=== PATIENT | male | born 1950 | race Two or more races ===

== ENCOUNTER 2019-06-25 16:39 | Emergency (ER) | payer MEDICARE, OTHER ==
[~2019-06-25] VITALS: Ht 160 cm; Wt 71.2 kg
[~2019-06-25 16:39] MED LIST: CHLO25TA22 PO; GLIP10TA9 PO; HYDR-4798 PO; METF-370 PO; METO-158 PO; NIFE90TA30 PO; OMEP20TA PO; TAMS0.4C36 PO
[2019-06-25 16:50] VITALS: BP 160/67
[2019-06-25 18:00] LABS: Basophils # (auto) 0.1 uL; Monocytes # (auto) 0.5 uL
[2019-06-25 18:03] LABS: Basophils % (auto) 0.7 % (0.0-2.0); Eosinophils # (auto) 0.3 uL; Hematocrit 36.3 % (41.0-53.0); Hemoglobin 12.4 g/dL (13.5-17.5); Lymphocytes # (auto) 1.6 uL; Lymphocytes % (auto) 18.6 % (10.0-50.0); Mean Corpuscular Hemoglobin 28.5 pg (28.0-32.0); Mean Corpuscular Hgb Conc. 34.2 g/dL (32.0-36.0); Mean Corpuscular Volume 83.5 fL (80.0-100.0); Monocytes % (auto) 5.9 % (0.0-12.0); Neutrophils # (auto) 6.1 uL; Neutrophils % (auto) 70.8 % (37.0-80.0); Nucleated Red Blood Cells % 0.1 %; Platelet Count (auto) 467 10^3/uL (140-450); Red Blood Cells 4.35 10^6/uL (4.5-5.90); Red Cell Distribution Width 18.3 % (11.8-14.3); White Blood Cell 8.6 10^3/uL (4.4-10.8)
[2019-06-25 18:23] LABS: Albumin 2.8 g/dL (3.4-5.0); Calcium 8.4 mg/dL (8.5-10.1); Chloride 107 mmol/L (98-107); Potassium 5.1 mmol/L (3.5-5.1); Sodium 134 mmol/L (136-145)
[2019-06-25 18:26] LABS: Alanine Aminotransferase 14 U/L (16-61); Anion Gap 7 (5-15); Aspartate Aminotransferase 10 U/L (15-37); BUN/Creatinine Ratio 16.6; Blood Urea Nitrogen 26 mg/dL (7-18); Carbon Dioxide 20 mmol/L (21-32); GFR African American 56 mL/min; GFR Non-African American 47 mL/min; Glucose 304 mg/dL (74-106)
[2019-06-25 18:31] LABS: Alkaline Phosphatase 84 U/L (45-117); Bilirubin, Total 0.2 mg/dL (0.2-1.0); Total Protein 7.6 g/dL (6.4-8.2)
== END 2019-06-25 21:33 | disposition left against medical advice (07) ==
LOC: ER 16:39
DX: R06.02 Shortness of breath (principal); Z53.21 Procedure and treatment not carried out due to patient leaving prior to being seen by health care provider
CPT/HCPCS: 36415; 71046; 80053; 84484; 85025; 93005

== ENCOUNTER 2019-06-27 12:19 | Emergency (ER) | payer OTHER ==
[~2019-06-27] VITALS: Ht 160 cm; Wt 71.2 kg
[2019-06-27 12:30] VITALS: BP 138/53
[2019-06-27 13:25] LABS: Hemoglobin 11.9 g/dL (13.5-17.5)
[2019-06-27 13:26] LABS: Hematocrit 36.3 % (41.0-53.0); Mean Corpuscular Hemoglobin 27.6 pg (28.0-32.0); Mean Corpuscular Hgb Conc. 32.9 g/dL (32.0-36.0); Mean Corpuscular Volume 84.1 fL (80.0-100.0); Platelet Count (auto) 533 10^3/uL (140-450); Red Blood Cells 4.32 10^6/uL (4.5-5.90); Red Cell Distribution Width 17.5 % (11.8-14.3); White Blood Cell 12.6 10^3/uL (4.4-10.8)
[2019-06-27 13:29] LABS: Band Neutrophils % (manual) 0; Basophils % (manual) 0 (0.0-2.0); Blast Cells 0; Myelocytes % 0; Promyelocytes % 0
[2019-06-27 13:40] LABS: INR 0.99 (0.9-1.15); Partial Thromboplastin Time 31.6 sec (23.64-32.05)
[2019-06-27 13:42] LABS: Chloride 105 mmol/L (98-107); Potassium 5.1 mmol/L (3.5-5.1); Sodium 133 mmol/L (136-145)
[2019-06-27 13:47] LABS: Alanine Aminotransferase 19 U/L (16-61); Albumin 3.1 g/dL (3.4-5.0); Anion Gap 8 (5-15); Aspartate Aminotransferase 14 U/L (15-37); BUN/Creatinine Ratio 18.3; Blood Urea Nitrogen 35 mg/dL (7-18); Calcium 8.3 mg/dL (8.5-10.1); Carbon Dioxide 20 mmol/L (21-32); GFR African American 45 mL/min; GFR Non-African American 37 mL/min; Glucose 238 mg/dL (74-106)
[2019-06-27 13:48] LABS: Eosinophils % (manual) 3 (0-7); Lymphocytes % (manual) 28 (10.0-50.0); Metamyelocytes % 1; Monocytes % (manual) 3 (0-12); Reactive Lymphocytes 1
[2019-06-27 13:52] LABS: Alkaline Phosphatase 84 U/L (45-117); Bilirubin, Total 0.2 mg/dL (0.2-1.0); Total Protein 7.7 g/dL (6.4-8.2)
[2019-06-27] MEDS ORDERED: ASPirin 81 mg TAB PO ONE (17:30)
== END 2019-06-27 19:57 | disposition home or self-care (01) ==
LOC: ER 12:25
DX: R07.89 Other chest pain (principal); R50.9 Fever, unspecified; R06.02 Shortness of breath; M79.602 Pain in left arm
CPT/HCPCS: 36415; 71046; 80053; 84484; 85007; 85027; 85610; 85730; 93005

== ENCOUNTER 2020-05-18 05:17 | Emergency (ER) | payer OTHER ==
[~2020-05-18] VITALS: Ht 160 cm; Wt 71.2 kg
[~2020-05-18 05:17] MED LIST changes: -NIFE90TA30 PO; +NIFE90TA49 PO
[2020-05-18 05:33] VITALS: BP 134/58
== END 2020-05-18 12:11 | disposition left against medical advice (07) ==
LOC: ER 05:17
DX: I13.0 Hypertensive heart and chronic kidney disease with heart failure and stage 1 through stage 4 chronic kidney disease, or unspecified chronic kidney disease (principal); E11.22 Type 2 diabetes mellitus with diabetic chronic kidney disease; N18.30 Chronic kidney disease, stage 3 unspecified; I50.89 Other heart failure; R07.89 Other chest pain; E78.5 Hyperlipidemia, unspecified; I25.2 Old myocardial infarction
CPT/HCPCS: 71045; 93005

== ENCOUNTER 2021-10-08 09:21 | Inpatient (IN) | payer OTHER ==
[~2021-10-08] VITALS: Ht 160 cm; Wt 81.3 kg
[~2021-10-08 09:21] MED LIST changes: +CHLO25TA2 PO; -CHLO25TA22 PO
[2021-10-08 10:22] LABS: Urine Bacteria MOD /hpf (None Seen); Urine Blood 3+ /uL (Negative); Urine Mucus FEW (None Seen); Urine Specific Gravity 1.013 (1.001-1.035); Urine WBC 69 /hpf (0 - 3)
[2021-10-08] MEDS ORDERED: MORPHINE SULFATE 4 MG/ML SYR/VIAL IV ONE (11:00)
[2021-10-08] MEDS ORDERED: ONDANSETRON HCL 4 MG/2 ML VIAL IV ONE (11:00)
[2021-10-08] MEDS ORDERED: cloNIDine HCL 0.1 MG TAB PO ONE (11:00)
[2021-10-08 11:29] LABS: Hemoglobin 11.1 g/dL (13.5-17.5)
[2021-10-08 11:31] LABS: Hematocrit 33.3 % (41.0-53.0); Mean Corpuscular Hemoglobin 27.5 pg (28.0-32.0); Mean Corpuscular Hgb Conc. 33.3 g/dL (32.0-36.0); Mean Corpuscular Volume 82.4 fL (80.0-100.0); Red Blood Cells 4.05 10^6/uL (4.5-5.90); Red Cell Distribution Width 13.7 % (11.8-14.3); White Blood Cell 18.5 10^3/uL (4.4-10.8)
[2021-10-08 11:38] LABS: Basophils % (manual) 0 (0.0-2.0); Blast Cells 0; Eosinophils % (manual) 0 (0-7); Metamyelocytes % 0; Myelocytes % 0; Promyelocytes % 0; Reactive Lymphocytes 0
[2021-10-08 11:44] LABS: Calcium 8.2 mg/dL (8.5-10.1); Potassium 4.7 mmol/L (3.5-5.1)
[2021-10-08 11:47] LABS: BUN/Creatinine Ratio 25.8; Bilirubin, Total 0.2 mg/dL (0.2-1.0); Total Protein 7.4 g/dL (6.4-8.2)
[2021-10-08] MEDS ORDERED: cefTRIAXone 1GM/50ML D5W 50 ML IV ONE (12:00)
[2021-10-08] MEDS ORDERED: DEXTROSE (50%) 50ML SYRG IV PRN (13:00)
[2021-10-08] MEDS ORDERED: NITROGLYCERIN 0.4 MG SL TAB SL PRN (13:00)
[2021-10-08 14:04] LABS: Band Neutrophils % (manual) 5; Lymphocytes % (manual) 6 (10.0-50.0); Monocytes % (manual) 4 (0-12)
[2021-10-08] MEDS ORDERED: LORazepam 0.5 MG TAB PO PRN (14:30)
[2021-10-08] MEDS ORDERED: HYDROcodone-ACET 5/325MG TAB PO ONE (14:30)
[2021-10-08] MEDS ORDERED: IPRATROPIUM BROM 0.5 MG/2.5ML INH SOL NEB ONE (14:30)
[2021-10-08] MEDS ORDERED: ONDANSETRON HCL 4 MG/2 ML VIAL IV PRN (14:30)
[2021-10-08] MEDS ORDERED: LACTULOSE 20Gm/30ML SOLN PO PRN (14:30)
[2021-10-08] MEDS: SODIUM CHLORIDE 0.9% 1,000 ML IV SCH (14:30)
[2021-10-08] MEDS ORDERED: hydrALAZINE HCL 20 MG/ML VL IV PRN (14:30)
[2021-10-08] MEDS ORDERED: FAMOTIDINE (10MG/ML) 2ML VL IV ONE (14:30)
[2021-10-08 14:58] LABS: Magnesium 1.5 mg/dL (1.6-2.6); Phosphorus 3.5 mg/dL (2.5-4.90)
[2021-10-08 15:18] LABS: INR 1.06 (0.9-1.15); Partial Thromboplastin Time 31.5 sec (23.6-33.0)
[2021-10-08] MEDS: MORPHINE SULFATE INJECTION 2 MG/ML SYRG IV PRN ×2 (15:32→21:43)
[2021-10-08 16:10] VITALS: BP 114/42
[2021-10-08 17:00] VITALS: BP 117/38
[2021-10-08] MEDS: InsuLIN REG 1unit/0.01ml Soln (100units/ml) SC SCH ×2 (17:00→21:33)
[2021-10-08] MEDS: ACCU-CHEK COMFORT CURVE STRIP VI SCH ×2 (17:29→22:08)
[2021-10-08] MEDS ORDERED: FUROSEMIDE 40 MG/4 ML VIAL IV ONE (17:45)
[2021-10-08] MEDS ORDERED: InsuLIN REG 1unit/0.01ml Soln (100units/ml) SC ONE (17:45)
[2021-10-08] MEDS ORDERED: InsuLIN REG 1unit/0.01ml Soln (100units/ml) IV ONE (17:45)
[2021-10-08] MEDS ORDERED: IPRATROPIUM BROM 0.5 MG/2.5ML INH SOL NEB SCH (18:00)
[2021-10-08] MEDS: FUROSEMIDE 40 MG/4 ML VIAL IV SCH (18:28)
[2021-10-08] MEDS: MAGNESIUM SULFATE 1GM/100ML 100 ML IV SCH ×4 (18:28→23:05)
[2021-10-08] MEDS: DOCUSATE SOD 100 MG CAP PO PRN (20:26)
[2021-10-08] MEDS: POTASSIUM CHL 20 Meq TABLET PO SCH (20:26)
[2021-10-08] MEDS: ATORVASTATIN 20 MG TAB PO SCH (20:26)
[2021-10-08] MEDS: HYDROcodone-ACET 5/325MG TAB PO PRN (20:36)
[2021-10-08] MEDS: INSULIN LANTUS (GLARGINE) 1 /0.01ml (100units/ml) SC SCH (21:35)
[2021-10-09] MEDS: HYDROcodone-ACET 5/325MG TAB PO PRN ×2 (02:41→08:37)
[2021-10-09] MEDS: MORPHINE SULFATE INJECTION 2 MG/ML SYRG IV PRN ×4 (04:09→22:39)
[2021-10-09] MEDS: FUROSEMIDE 40 MG/4 ML VIAL IV SCH (05:48)
[2021-10-09 05:53] LABS: Alcohol, Urine < 3.0 mg/dL (0-10); Amphetamine Screen, Urine NEGATIVE (NEGATIVE); Barbiturate Scree,Urine NEGATIVE (NEGATIVE); Benzodiazephine Screen, Urine NEGATIVE (NEGATIVE); Cannabinoid Screen, Urine NEGATIVE (NEGATIVE); Cocaine Screen, Urine NEGATIVE (NEGATIVE); Opiate Scree,Urine POSITIVE (NEGATIVE); Phencyclidine Screen, Urine NEGATIVE (NEGATIVE); Protein, Urine 36.5 mg/dL (0.0-11.9)
[2021-10-09] MEDS: ACCU-CHEK COMFORT CURVE STRIP VI SCH ×4 (05:55→21:48)
[2021-10-09 06:00] LABS: Urine Bacteria FEW /hpf (None Seen); Urine Blood 3+ /uL (Negative); Urine Specific Gravity 1.008 (1.001-1.035); Urine WBC 7 /hpf (0 - 3); Urine WBC Clumps PRESENT /hpf (None Seen)
[2021-10-09] MEDS: InsuLIN REG 1unit/0.01ml Soln (100units/ml) SC SCH ×4 (06:07→22:00)
[2021-10-09] MEDS: INSULIN LANTUS (GLARGINE) 1 /0.01ml (100units/ml) SC SCH ×2 (06:07→22:00)
[2021-10-09] MEDS: SODIUM CHLORIDE 0.9% 1,000 ML IV SCH ×2 (06:07→21:48)
[2021-10-09 06:09] VITALS: BP 117/76
[2021-10-09 06:54] LABS: Hematocrit 33.8 % (41.0-53.0); Hemoglobin 11.7 g/dL (13.5-17.5); INR 1.02 (0.9-1.15); Mean Corpuscular Hemoglobin 28.4 pg (28.0-32.0); Mean Corpuscular Hgb Conc. 34.8 g/dL (32.0-36.0); Mean Corpuscular Volume 81.5 fL (80.0-100.0); Partial Thromboplastin Time 27.6 sec (23.6-33.0); Red Blood Cells 4.14 10^6/uL (4.5-5.90); Red Cell Distribution Width 13.8 % (11.8-14.3); White Blood Cell 23.9 10^3/uL (4.4-10.8)
[2021-10-09 07:05] LABS: Potassium 4.4 mmol/L (3.5-5.1)
[2021-10-09 07:14] LABS: Thyroid Stimulating Hormone 1.14 uIU/mL (0.358-3.74)
[2021-10-09 07:24] LABS: Basophils % (manual) 0 (0.0-2.0); Blast Cells 0; Metamyelocytes % 0; Promyelocytes % 0; Reactive Lymphocytes 0
[2021-10-09 07:26] LABS: Albumin 3.2 g/dL (3.4-5.0); BUN/Creatinine Ratio 27.5; Bilirubin, Total 0.2 mg/dL (0.2-1.0); CRP High Sensitivity 3.88 mg/dL (< 0.3); Calcium 8.9 mg/dL (8.5-10.1); Phosphorus 3.2 mg/dL (2.5-4.90); Total Protein 7.6 g/dL (6.4-8.2); Uric Acid 7.5 mg/dL (3.5-7.2)
[2021-10-09 07:30] VITALS: BP 117/76
[2021-10-09 08:07] LABS: Band Neutrophils % (manual) 2; Eosinophils % (manual) 1 (0-7); Lymphocytes % (manual) 13 (10.0-50.0); Monocytes % (manual) 6 (0-12); Myelocytes % 1
[2021-10-09] MEDS: cefTRIAXone 1GM/50ML D5W 50 ML IV SCH (08:37)
[2021-10-09] MEDS: FAMOTIDINE (10MG/ML) 2ML VL IV SCH (08:37)
[2021-10-09] MEDS: MAGNESIUM OXIDE 400 MG TAB PO SCH ×2 (08:38→21:47)
[2021-10-09] MEDS: POTASSIUM CHL 20 Meq TABLET PO SCH ×2 (08:38→21:48)
[2021-10-09] MEDS: FINASTERIDE 5 MG TAB PO SCH (08:38)
[2021-10-09] MEDS: NIFEdipine ER 30 MG TAB PO SCH (08:39)
[2021-10-09 08:48] VITALS: BP 116/52
[2021-10-09] MEDS ORDERED: METOPROLOL SUCCINATE XL 50 MG TAB PO SCH (10:00)
[2021-10-09 13:00] VITALS: BP 135/56
[2021-10-09] MEDS ORDERED: HYDROcodone-ACET 10/325MG TAB PO PRN (15:45)
[2021-10-09] MEDS: METOPROLOL SUCCINATE XL 50 MG TAB PO SCH (16:51)
[2021-10-09] MEDS: TAMSULOSIN HYDROCHLORIDE 0.4 MG CAP PO SCH (16:51)
[2021-10-09 17:28] VITALS: BP 118/65
[2021-10-09 21:30] VITALS: BP 120/57
[2021-10-09] MEDS: DOCUSATE SOD 100 MG CAP PO PRN (21:47)
[2021-10-09] MEDS: ATORVASTATIN 20 MG TAB PO SCH (21:47)
[2021-10-10 05:00] VITALS: BP 115/47
[2021-10-10 06:27] LABS: Red Cell Distribution Width 13.6 % (11.8-14.3)
[2021-10-10 06:31] LABS: Basophils # (auto) 0.1 10 ^3/uL (0-0.2); Basophils % (auto) 0.3 % (0.0-2.0); Eosinophils # (auto) 0.1 10 ^3/uL (0-0.8); Eosinophils % (auto) 0.4 % (0.0-7.0); Hematocrit 31.4 % (41.0-53.0); Hemoglobin 10.5 g/dL (13.5-17.5); Lymphocytes # (auto) 2.2 10 ^3/uL (0.4-5.4); Lymphocytes % (auto) 9.1 % (10.0-50.0); Mean Corpuscular Hemoglobin 27.4 pg (28.0-32.0); Mean Corpuscular Hgb Conc. 33.2 g/dL (32.0-36.0); Mean Corpuscular Volume 82.5 fL (80.0-100.0); Monocytes # (auto) 2.5 10 ^3/uL (0-1.3); Monocytes % (auto) 10.2 % (0.0-12.0); Neutrophils # (auto) 19.5 10 ^3/uL (1.6-8.6); Red Blood Cells 3.81 10^6/uL (4.5-5.90); White Blood Cell 24.4 10^3/uL (4.4-10.8)
[2021-10-10 06:33] LABS: Calcium 8.3 mg/dL (8.5-10.1); Potassium 4.3 mmol/L (3.5-5.1)
[2021-10-10 06:36] LABS: BUN/Creatinine Ratio 31.2
[2021-10-10] MEDS: InsuLIN REG 1unit/0.01ml Soln (100units/ml) SC SCH ×4 (06:56→22:49)
[2021-10-10] MEDS: ACCU-CHEK COMFORT CURVE STRIP VI SCH ×4 (07:00→22:00)
[2021-10-10] MEDS: INSULIN LANTUS (GLARGINE) 1 /0.01ml (100units/ml) SC SCH ×2 (07:00→22:49)
[2021-10-10] MEDS: MAGNESIUM OXIDE 400 MG TAB PO SCH ×2 (08:27→22:50)
[2021-10-10] MEDS: FAMOTIDINE (10MG/ML) 2ML VL IV SCH (08:28)
[2021-10-10] MEDS: FINASTERIDE 5 MG TAB PO SCH (08:28)
[2021-10-10] MEDS: cefTRIAXone 1GM/50ML D5W 50 ML IV SCH (08:29)
[2021-10-10 08:35] VITALS: BP 154/61
[2021-10-10] MEDS: POTASSIUM CHL 20 Meq TABLET PO SCH ×2 (08:44→22:49)
[2021-10-10] MEDS: NIFEdipine ER 30 MG TAB PO SCH (08:47)
[2021-10-10 12:05] VITALS: BP 137/65
[2021-10-10 12:20] VITALS: BP 115/66
[2021-10-10] MEDS ORDERED: MORPHINE SULFATE INJECTION 2 MG/ML SYRG IV PRN (13:45)
[2021-10-10] MEDS ORDERED: HYDROcodone-ACET 5/325MG TAB PO PRN ×2 (13:45→18:15)
[2021-10-10] MEDS: MORPHINE SULFATE INJECTION 2 MG/ML SYRG IV PRN (16:01)
[2021-10-10 16:25] VITALS: BP 134/62
[2021-10-10] MEDS: SODIUM CHLORIDE 0.9% 1,000 ML IV SCH ×2 (16:30→18:55)
[2021-10-10] MEDS: TAMSULOSIN HYDROCHLORIDE 0.4 MG CAP PO SCH (18:24)
[2021-10-10] MEDS: HYDROcodone-ACET 10/325MG TAB PO PRN ×2 (18:24→22:52)
[2021-10-10] MEDS: METOPROLOL SUCCINATE XL 50 MG TAB PO SCH (18:25)
[2021-10-10 22:00] VITALS: BP 124/39
[2021-10-10] MEDS: ATORVASTATIN 20 MG TAB PO SCH (22:49)
[2021-10-10] MEDS: MEROPENEM 1GM IVPB 100 ML IV SCH (23:34)
[2021-10-11] MEDS: HYDROcodone-ACET 10/325MG TAB PO PRN ×2 (04:32→09:20)
[2021-10-11 05:00] VITALS: BP 101/33
[2021-10-11 06:00] LABS: Basophils # (auto) 0.1 10 ^3/uL (0-0.2); Basophils % (auto) 0.3 % (0.0-2.0); Eosinophils # (auto) 0.2 10 ^3/uL (0-0.8); Eosinophils % (auto) 0.9 % (0.0-7.0); Monocytes # (auto) 1.6 10 ^3/uL (0-1.3); Nucleated Red Blood Cells % 0.1 %; Red Cell Distribution Width 14.1 % (11.8-14.3); White Blood Cell 23.5 10^3/uL (4.4-10.8)
[2021-10-11 06:02] LABS: Hematocrit 30.7 % (41.0-53.0); Hemoglobin 10.4 g/dL (13.5-17.5); Lymphocytes # (auto) 2.7 10 ^3/uL (0.4-5.4); Lymphocytes % (auto) 11.6 % (10.0-50.0); Mean Corpuscular Hemoglobin 27.9 pg (28.0-32.0); Monocytes % (auto) 6.9 % (0.0-12.0); Neutrophils # (auto) 18.9 10 ^3/uL (1.6-8.6); Neutrophils % (auto) 80.3 % (37.0-80.0); Red Blood Cells 3.74 10^6/uL (4.5-5.90)
[2021-10-11 06:20] LABS: Potassium 4.7 mmol/L (3.5-5.1)
[2021-10-11 06:28] LABS: BUN/Creatinine Ratio 31.6; Calcium 8.5 mg/dL (8.5-10.1); Magnesium 2.6 mg/dL (1.6-2.6)
[2021-10-11] MEDS: ACCU-CHEK COMFORT CURVE STRIP VI SCH ×4 (06:28→21:40)
[2021-10-11] MEDS: InsuLIN REG 1unit/0.01ml Soln (100units/ml) SC SCH ×4 (06:29→22:02)
[2021-10-11] MEDS: INSULIN LANTUS (GLARGINE) 1 /0.01ml (100units/ml) SC SCH ×2 (06:57→22:02)
[2021-10-11 08:56] VITALS: BP 119/61
[2021-10-11] MEDS: MEROPENEM 1GM IVPB 100 ML IV SCH ×2 (09:17→21:25)
[2021-10-11] MEDS: FAMOTIDINE (10MG/ML) 2ML VL IV SCH (09:17)
[2021-10-11] MEDS: NIFEdipine ER 30 MG TAB PO SCH (09:18)
[2021-10-11] MEDS: POTASSIUM CHL 20 Meq TABLET PO SCH ×2 (09:20→21:25)
[2021-10-11] MEDS: MAGNESIUM OXIDE 400 MG TAB PO SCH ×2 (09:21→21:26)
[2021-10-11] MEDS: FINASTERIDE 5 MG TAB PO SCH (09:22)
[2021-10-11 13:00] VITALS: BP 155/58
[2021-10-11] MEDS: MORPHINE SULFATE INJECTION 2 MG/ML SYRG IV PRN (13:08)
[2021-10-11 16:43] VITALS: BP 113/53
[2021-10-11] MEDS: METOPROLOL SUCCINATE XL 50 MG TAB PO SCH (17:00)
[2021-10-11] MEDS: TAMSULOSIN HYDROCHLORIDE 0.4 MG CAP PO SCH (18:00)
[2021-10-11] MEDS ORDERED: HYDROcodone-ACET 10/325MG TAB PO PRN (21:15)
[2021-10-11] MEDS: ATORVASTATIN 20 MG TAB PO SCH (21:25)
[2021-10-11] MEDS: MORPHINE SULFATE 4 MG/ML SYR/VIAL IV PRN (21:28)
[2021-10-11 22:00] VITALS: BP 129/49
[2021-10-12] MEDS: SODIUM CHLORIDE 0.9% 1,000 ML IV SCH (01:39)
[2021-10-12] MEDS: MORPHINE SULFATE 4 MG/ML SYR/VIAL IV PRN ×3 (04:20→15:50)
[2021-10-12 05:05] VITALS: BP 129/51
[2021-10-12] MEDS: ACCU-CHEK COMFORT CURVE STRIP VI SCH ×2 (06:16→11:30)
[2021-10-12] MEDS: InsuLIN REG 1unit/0.01ml Soln (100units/ml) SC SCH ×2 (06:21→11:30)
[2021-10-12] MEDS: INSULIN LANTUS (GLARGINE) 1 /0.01ml (100units/ml) SC SCH (06:22)
[2021-10-12 09:00] VITALS: BP 122/41
[2021-10-12] MEDS: MAGNESIUM OXIDE 400 MG TAB PO SCH (10:02)
[2021-10-12] MEDS: POTASSIUM CHL 20 Meq TABLET PO SCH (10:02)
[2021-10-12] MEDS: FAMOTIDINE (10MG/ML) 2ML VL IV SCH (10:02)
[2021-10-12] MEDS: NIFEdipine ER 30 MG TAB PO SCH (10:02)
[2021-10-12] MEDS: MEROPENEM 1GM IVPB 100 ML IV SCH (10:03)
[2021-10-12] MEDS: FINASTERIDE 5 MG TAB PO SCH (10:03)
[2021-10-12 12:44] LABS: Basophils # (auto) 0.1 10 ^3/uL (0-0.2); Basophils % (auto) 0.3 % (0.0-2.0); Eosinophils # (auto) 0.1 10 ^3/uL (0-0.8); Eosinophils % (auto) 0.5 % (0.0-7.0)
[2021-10-12 12:46] LABS: Hematocrit 32.9 % (41.0-53.0); Hemoglobin 10.8 g/dL (13.5-17.5); Lymphocytes # (auto) 1.8 10 ^3/uL (0.4-5.4); Lymphocytes % (auto) 7.6 % (10.0-50.0); Mean Corpuscular Hemoglobin 27.5 pg (28.0-32.0); Mean Corpuscular Hgb Conc. 32.8 g/dL (32.0-36.0); Mean Corpuscular Volume 83.8 fL (80.0-100.0); Monocytes % (auto) 4.3 % (0.0-12.0); Neutrophils % (auto) 87.3 % (37.0-80.0); Red Blood Cells 3.93 10^6/uL (4.5-5.90); Red Cell Distribution Width 14.1 % (11.8-14.3); White Blood Cell 22.9 10^3/uL (4.4-10.8)
[2021-10-12 12:50] LABS: BUN/Creatinine Ratio 29.4; Calcium 8.3 mg/dL (8.5-10.1); Potassium 5.1 mmol/L (3.5-5.1)
[2021-10-12 13:00] VITALS: BP 111/36
[2021-10-12 16:20] VITALS: BP 118/42
== END 2021-10-12 16:21 | disposition short-term general hospital (02) | DRG 871 ==
LOC: ER 09:21 → OVERFLOW 12:54 → EAST 15:09
PROVIDERS: ADMIT Hospitalist; ATTEND Internal Medicine Geriatric Medicine
DX: A41.9 Sepsis, unspecified organism (principal); N17.0 Acute kidney failure with tubular necrosis; N39.0 Urinary tract infection, site not specified; J96.10 Chronic respiratory failure, unspecified whether with hypoxia or hypercapnia; I13.0 Hypertensive heart and chronic kidney disease with heart failure and stage 1 through stage 4 chronic kidney disease, or unspecified chronic kidney disease; N13.8 Other obstructive and reflux uropathy; N41.2 Abscess of prostate; D64.9 Anemia, unspecified; N18.32 Chronic kidney disease, stage 3b; E66.01 Morbid (severe) obesity due to excess calories; E11.22 Type 2 diabetes mellitus with diabetic chronic kidney disease; I25.5 Ischemic cardiomyopathy; I25.10 Atherosclerotic heart disease of native coronary artery without angina pectoris; I50.9 Heart failure, unspecified; Z20.822 Contact with and (suspected) exposure to COVID-19; R31.9 Hematuria, unspecified; B96.20 Unspecified Escherichia coli [E. coli] as the cause of diseases classified elsewhere; E11.40 Type 2 diabetes mellitus with diabetic neuropathy, unspecified; R07.89 Other chest pain; E78.5 Hyperlipidemia, unspecified; J44.9 Chronic obstructive pulmonary disease, unspecified; N40.1 Benign prostatic hyperplasia with lower urinary tract symptoms; Z95.0 Presence of cardiac pacemaker; Z95.1 Presence of aortocoronary bypass graft; Z79.84 Long term (current) use of oral hypoglycemic drugs; Z79.899 Other long term (current) drug therapy; Z68.31 Body mass index [BMI] 31.0-31.9, adult
CPT/HCPCS: 36415; 74176; 80048; 80053; 80061; 80307; 81001; 82550; 82728; 82962; 83036; 83605; 83615; 83690; 83735; 83880; 83970; 84100; 84156; 84443; 84484; 84550; 85007; 85025; 85027; 85379; 85610; 85652; 85730; 86141; 87040; 87086; 87088; 87186; 93005; 96365; 96375; G0378; J0696; J1815; J2185; J2405; J3490

== ENCOUNTER 2023-06-09 12:23 | Inpatient (IN) | payer MEDICARE, OTHER ==
[~2023-06-09] VITALS: Ht 160 cm; Wt 81.0 kg
[~2023-06-09 12:23] MED LIST changes: -NIFE90TA49 PO; +NIFE90TA75 PO
[2023-06-09 13:25] LABS: Basophils # (auto) 0.1 10 ^3/uL (0-0.2); Basophils % (auto) 0.4 % (0.0-2.0); Eosinophils # (auto) 0.2 10 ^3/uL (0-0.8); Eosinophils % (auto) 1.5 % (0.0-7.0); Hematocrit 35.9 % (41.0-53.0); Hemoglobin 11.6 g/dL (13.5-17.5); Lymphocytes # (auto) 1.8 10 ^3/uL (0.4-5.4); Lymphocytes % (auto) 15.8 % (10.0-50.0); Mean Corpuscular Hemoglobin 28.5 pg (28.0-32.0); Mean Corpuscular Hgb Conc. 32.4 g/dL (32.0-36.0); Mean Corpuscular Volume 87.9 fL (80.0-100.0); Monocytes # (auto) 0.6 10 ^3/uL (0-1.3); Monocytes % (auto) 5.2 % (0.0-12.0); Neutrophils # (auto) 8.8 10 ^3/uL (1.6-8.6); Neutrophils % (auto) 77.1 % (37.0-80.0); Red Blood Cells 4.08 10^6/uL (4.5-5.90); Red Cell Distribution Width 14.9 % (11.8-14.3); White Blood Cell 11.5 10^3/uL (4.4-10.8)
[2023-06-09 13:42] LABS: Alanine Aminotransferase 15 U/L (7-40); Albumin 4.3 g/dL (3.2-4.8); Alkaline Phosphatase 73 U/L (46-116); Anion Gap 5 (5-15); Aspartate Aminotransferase 16 U/L (13-40); BUN/Creatinine Ratio 18.5 (10.0-20.0); Bilirubin, Total 0.3 mg/dL (0.2-1.0); Blood Urea Nitrogen 30 mg/dL (9-23); Calcium 8.8 mg/dL (8.7-10.4); Carbon Dioxide 24 mmol/L (20-30); Chloride 106 mmol/L (98-107); Glucose 180 mg/dL (74-106); Magnesium 1.3 mg/dL (1.6-2.6); Sodium 135 mmol/L (136-145)
[2023-06-09 13:43] LABS: Total Protein 6.3 g/dL (5.7-8.2)
[2023-06-09 13:47] LABS: INR 1.15 (0.9-1.15); Partial Thromboplastin Time 39.3 SEC (24.5-34.5)
[2023-06-09 13:52] LABS: Potassium 6.3 mmol/L (3.5-5.1)
[2023-06-09 14:15] VITALS: PULSE 66; RESP 18; O2SAT 98
[2023-06-09] MEDS ORDERED: ONDANSETRON HCL 4 MG/2 ML VIAL IV PRN (14:45)
[2023-06-09] MEDS ORDERED: ACETAMINOPHEN 325 MG TAB PO PRN (14:45)
[2023-06-09] MEDS ORDERED: MORPHINE SULFATE INJ 2 MG/ml SYRG IV PRN (14:45)
[2023-06-09] MEDS ORDERED: NITROGLYCERIN 0.4 MG SL TAB SL PRN (14:45)
[2023-06-09] MEDS: ASPirin 81 mg TAB PO SCH (15:00)
[2023-06-09] MEDS ORDERED: hydrALAZINE HCL 20 MG/ML VL IV PRN (15:00)
[2023-06-09] MEDS ORDERED: DEXTROSE (50%) 50ML SYRG IV PRN (15:00)
[2023-06-09] MEDS ORDERED: InsuLIN REG 1unit/0.01ml Soln (100units/ml) IV ONE (15:30)
[2023-06-09] MEDS ORDERED: DEXTROSE (50%) 50ML SYRG IV ONE (15:30)
[2023-06-09] MEDS ORDERED: FUROSEMIDE 20 MG/2 ML VIAL IV ONE (15:30)
[2023-06-09] MEDS ORDERED: SODIUM ZIRCONIUM CYCL 10 GM PAK PO ONE (15:30)
[2023-06-09] MEDS ORDERED: CALCIUM CHL 100MG/ML 1,000 MG in D5W 5% 100 ML IV ONE (15:30)
[2023-06-09] MEDS ORDERED: MAGNESIUM SULFATE 1GM/100ML 100 ML IV ONE (15:45)
[2023-06-09] MEDS: NIFEdipine ER 30 MG TAB PO SCH (16:03)
[2023-06-09] MEDS: HYDROcodone-ACET 5/325MG TAB PO PRN ×2 (16:04→23:05)
[2023-06-09 16:12] LABS: Triglycerides 121 mg/dL (< 150)
[2023-06-09 16:13] LABS: LDL Cholesterol 43 mg/dL (< 100)
[2023-06-09 16:14] LABS: Cholesterol 113 mg/dL (< 200); HDL Cholesterol 50 mg/dL (40-59)
[2023-06-09] MEDS ORDERED: CALCIUM GLUC 1,000mg/50ml-NS 50 ML IV ONE (16:15)
[2023-06-09 16:30] LABS: Urine Bacteria NONE SEEN /hpf (None Seen); Urine Blood Negative /uL (Negative); Urine Clarity Clear (Clear); Urine Color Colorless (Yellow); Urine Protein, UAD 1+ (Negative); Urine Specific Gravity 1.009 (1.001-1.035); Urine Urobilinogen Normal (Negative); Urine WBC <1 /hpf (0 - 3); Urine pH 6.5 (5.0-8.0)
[2023-06-09 16:33] LABS: Protein, Urine 67.9 mg/dL (0.0-11.9)
[2023-06-09 16:35] LABS: Creatinine, Urine 36.02 mg/dL (30.0-125.0); Urine Protein/Creatinine Ratio 1.89
[2023-06-09] MEDS: InsuLIN REG 1unit/0.01ml Soln (100units/ml) SC SCH ×2 (17:32→23:07)
[2023-06-09] MEDS: ACCU-CHEK COMFORT CURVE STRIP VI SCH ×2 (17:32→22:00)
[2023-06-09] MEDS: MORPHINE SULFATE INJ 2 MG/ml SYRG IV PRN (18:58)
[2023-06-09] MEDS: TAMSULOSIN HYDROCHLORIDE 0.4 MG CAP PO SCH (18:58)
[2023-06-09 19:30] VITALS: PULSE 77; RESP 16; O2SAT 98
[2023-06-09] MEDS ORDERED: CARVEDILOL 12.5 MG TAB PO SCH (22:00)
[2023-06-09] MEDS: ATORVASTATIN 20 MG TAB PO SCH (23:04)
[2023-06-09] MEDS: HEPARIN SODIUM (PORCINE) 5000 UNITS/ML 1ML VIAL SC SCH (23:06)
[2023-06-09] MEDS: INSULIN LANTUS (GLARGINE) 1 /0.01ml (100units/ml) SC SCH (23:08)
[2023-06-10] VITALS (7 sets, daily range): BP systolic 101–124; BP diastolic 45–52; PULSE 60–97; RESP 18–20; TEMP 97.5–98; O2SAT 94–97
[2023-06-10] MEDS: MORPHINE SULFATE INJ 2 MG/ml SYRG IV PRN (02:11)
[2023-06-10] MEDS ORDERED: SIMV40TA18 PO (02:18)
[2023-06-10] MEDS ORDERED: RIV20T PO (02:18)
[2023-06-10] MEDS ORDERED: LISI40TA16 PO (02:18)
[2023-06-10] MEDS ORDERED: CHOL20003 PO (02:18)
[2023-06-10] MEDS ORDERED: INFLUENZA QUAD 2023-2024 0.5 ML SYRG IM ONE (02:30)
[2023-06-10] MEDS: ACCU-CHEK COMFORT CURVE STRIP VI SCH ×4 (06:08→22:39)
[2023-06-10] MEDS: InsuLIN REG 1unit/0.01ml Soln (100units/ml) SC SCH ×4 (06:11→22:44)
[2023-06-10 08:06] LABS: PSA Free 1.66 ng/mL; Prostate Specific Antigen 3.9 ng/mL (0.0-4.0)
[2023-06-10] MEDS ORDERED: FUROSEMIDE 40 MG/4 ML VIAL IV SCH (10:00)
[2023-06-10] MEDS: OMEPRAZOLE-SOD BICARB 20 MG POWDER PO SCH (10:00)
[2023-06-10] MEDS: HEPARIN SODIUM (PORCINE) 5000 UNITS/ML 1ML VIAL SC SCH ×2 (10:00→22:44)
[2023-06-10] MEDS: NIFEdipine ER 30 MG TAB PO SCH (10:00)
[2023-06-10] MEDS: HYDROcodone-ACET 5/325MG TAB PO PRN (11:08)
[2023-06-10] MEDS: ASPirin 81 mg TAB PO SCH (11:11)
[2023-06-10 11:32] LABS: Basophils # (auto) 0.1 10 ^3/uL (0-0.2); Basophils % (auto) 0.7 % (0.0-2.0); Eosinophils # (auto) 0.2 10 ^3/uL (0-0.8); Eosinophils % (auto) 1.5 % (0.0-7.0); Hematocrit 36.2 % (41.0-53.0); Lymphocytes # (auto) 1.8 10 ^3/uL (0.4-5.4); Lymphocytes % (auto) 14.9 % (10.0-50.0); Mean Corpuscular Hemoglobin 28.1 pg (28.0-32.0); Mean Corpuscular Volume 85.1 fL (80.0-100.0); Monocytes # (auto) 0.7 10 ^3/uL (0-1.3); Monocytes % (auto) 5.6 % (0.0-12.0); Neutrophils # (auto) 9.3 10 ^3/uL (1.6-8.6); Neutrophils % (auto) 77.3 % (37.0-80.0); Nucleated Red Blood Cells % 0.1 %; Red Blood Cells 4.25 10^6/uL (4.5-5.90); Red Cell Distribution Width 14.8 % (11.8-14.3)
[2023-06-10 11:48] LABS: Alanine Aminotransferase 11 U/L (7-40); Albumin 4.4 g/dL (3.2-4.8); Alkaline Phosphatase 73 U/L (46-116); Anion Gap 8 (5-15); Aspartate Aminotransferase 12 U/L (13-40); BUN/Creatinine Ratio 13.6 (10.0-20.0); Bilirubin, Total 0.6 mg/dL (0.2-1.0); Blood Urea Nitrogen 25 mg/dL (9-23); Calcium 9.1 mg/dL (8.5-10.1); Carbon Dioxide 25 mmol/L (20-30); Chloride 100 mmol/L (98-107); Glucose 159 mg/dL (74-106); Potassium 4.9 mmol/L (3.5-5.1); Sodium 133 mmol/L (136-145); Total Protein 6.9 g/dL (5.7-8.2)
[2023-06-10 12:06] LABS: Magnesium 1.5 mg/dL (1.6-2.6)
[2023-06-10] MEDS ORDERED: ERGOCALCIFEROL 50,000 UNIT(1.25MG) CAP PO SCH (13:15)
[2023-06-10 14:40] LABS: Protein, Urine 77.5 mg/dL (0.0-11.9)
[2023-06-10 14:42] LABS: Creatinine, Urine 55.7 mg/dL (30.0-125.0); Urine Protein/Creatinine Ratio 1.39
[2023-06-10 14:50] LABS: Urine Bacteria FEW /hpf (None Seen); Urine Blood Negative /uL (Negative); Urine Clarity Clear (Clear); Urine Color Colorless (Yellow); Urine Hyaline Cast FEW /lpf (0 - 2); Urine Protein, UAD 1+ (Negative); Urine Urobilinogen Normal (Negative); Urine WBC 2 /hpf (0 - 3); Urine pH 6.5 (5.0-8.0)
[2023-06-10] MEDS ORDERED: ATO40T PO (15:25)
[2023-06-10] MEDS ORDERED: LIDOCAINE 2%HCL (LOCAL ANESTH.) INJ 20ML MDV ONE (17:02)
[2023-06-10] MEDS ORDERED: IODIXANOL 320MG/ML 100ML BTL IV ONE (17:03)
[2023-06-10] MEDS ORDERED: MIDAZOLAM HCL 2MG/2ML 2ml VIAL (1mg/ml) ONE (17:15)
[2023-06-10] MEDS ORDERED: ANGIOMAX 250 MG VIAL IV ONE (17:15)
[2023-06-10] MEDS ORDERED: VERAPAMIL 2.5MG/ML INJ 2ML VIAL IV ONE (17:15)
[2023-06-10] MEDS ORDERED: fentaNYL CITRATE 100 MCG/2 ML VL ONE (17:15)
[2023-06-10] MEDS ORDERED: HEPARIN SODIUM (PORCINE) 5000 UNITS/ML 1ML VIAL ONE ×2 (17:15→22:31)
[2023-06-10] MEDS ORDERED: SODIUM CHL 0.9% 0 ML ONE (17:16)
[2023-06-10] MEDS: TAMSULOSIN HYDROCHLORIDE 0.4 MG CAP PO SCH (17:54)
[2023-06-10] MEDS: METOPROLOL TARTRATE 25 MG TAB PO SCH (22:00)
[2023-06-10] MEDS: ATORVASTATIN 20 MG TAB PO SCH (22:39)
[2023-06-10] MEDS: INSULIN LANTUS (GLARGINE) 1 /0.01ml (100units/ml) SC SCH (22:44)
[2023-06-10] MEDS ORDERED: TEMAZEPAM 15 MG CAP PO ONE (23:15)
[2023-06-11 05:00] VITALS: BP 109/41; PULSE 61; RESP 18; TEMP 98; O2SAT 93
[2023-06-11] MEDS: InsuLIN REG 1unit/0.01ml Soln (100units/ml) SC SCH ×2 (06:36→11:30)
[2023-06-11] MEDS: ACCU-CHEK COMFORT CURVE STRIP VI SCH ×2 (06:36→11:30)
[2023-06-11 07:16] LABS: Basophils # (auto) 0 10 ^3/uL (0-0.2); Basophils % (auto) 0.2 % (0.0-2.0); Eosinophils # (auto) 0.2 10 ^3/uL (0-0.8); Eosinophils % (auto) 1.4 % (0.0-7.0); Hematocrit 38.3 % (41.0-53.0); Hemoglobin 12.5 g/dL (13.5-17.5); Lymphocytes % (auto) 14.4 % (10.0-50.0); Mean Corpuscular Hemoglobin 27.9 pg (28.0-32.0); Mean Corpuscular Hgb Conc. 32.6 g/dL (32.0-36.0); Mean Corpuscular Volume 85.6 fL (80.0-100.0); Monocytes # (auto) 1.1 10 ^3/uL (0-1.3); Monocytes % (auto) 8.1 % (0.0-12.0); Neutrophils # (auto) 10.4 10 ^3/uL (1.6-8.6); Neutrophils % (auto) 75.9 % (37.0-80.0); Red Blood Cells 4.47 10^6/uL (4.5-5.90); Red Cell Distribution Width 15.1 % (11.8-14.3); White Blood Cell 13.8 10^3/uL (4.4-10.8)
[2023-06-11 07:26] LABS: Alanine Aminotransferase 11 U/L (7-40); Albumin 4.3 g/dL (3.2-4.8); Alkaline Phosphatase 74 U/L (46-116); Anion Gap 10 (5-15); Aspartate Aminotransferase 14 U/L (13-40); BUN/Creatinine Ratio 15.7 (10.0-20.0); Bilirubin, Total 0.6 mg/dL (0.2-1.0); Blood Urea Nitrogen 26 mg/dL (9-23); Calcium 8.4 mg/dL (8.7-10.4); Carbon Dioxide 24 mmol/L (20-30); Chloride 101 mmol/L (98-107); Glucose 86 mg/dL (74-106); Magnesium 1.7 mg/dL (1.6-2.6); Potassium 4.2 mmol/L (3.5-5.1); Sodium 135 mmol/L (136-145); Total Protein 6.8 g/dL (5.7-8.2)
[2023-06-11 08:00] VITALS: PULSE 65; O2SAT 97
[2023-06-11 09:00] VITALS: BP 103/45; PULSE 63; RESP 18; TEMP 97.3; O2SAT 93
[2023-06-11] MEDS: OMEPRAZOLE-SOD BICARB 20 MG POWDER PO SCH (10:00)
[2023-06-11] MEDS: METOPROLOL TARTRATE 25 MG TAB PO SCH (10:00)
[2023-06-11] MEDS: NIFEdipine ER 30 MG TAB PO SCH (10:00)
[2023-06-11] MEDS: HEPARIN SODIUM (PORCINE) 5000 UNITS/ML 1ML VIAL SC SCH (10:00)
[2023-06-11] MEDS: ASPirin 81 mg TAB PO SCH (10:20)
[2023-06-11 12:43] VITALS: BP 127/48; PULSE 67; RESP 18; TEMP 97.9; O2SAT 97
[2023-06-11] MEDS ORDERED: ASPI-325 PO (14:23)
[2023-06-11] MEDS ORDERED: MET25T PO (14:23)
[2023-06-11 14:54] VITALS: BP 103/45; PULSE 63; TEMP 36.6
[2023-06-12] MEDS ORDERED: PANTOPRAZOLE 40 MG TAB PO SCH ×2 (10:00)
== END 2023-06-11 16:30 | disposition home or self-care (01) | DRG 287 ==
LOC: EDBD 12:23 → ER 12:23 → TELE 14:58 → TELE-WESTW 23:49
PROVIDERS: ADMIT Internal Medicine; ATTEND Internal Medicine Geriatric Medicine
PROC: 4A023N7 Measurement of Cardiac Sampling and Pressure, Left Heart, Percutaneous Approach (ICD-10-PCS; principal; 2023-06-10)
PROC: B211YZZ Fluoroscopy of Multiple Coronary Arteries using Other Contrast (ICD-10-PCS; 2023-06-10)
PROC: B213YZZ Fluoroscopy of Multiple Coronary Artery Bypass Grafts using Other Contrast (ICD-10-PCS; 2023-06-10)
PROC: B215YZZ Fluoroscopy of Left Heart using Other Contrast (ICD-10-PCS; 2023-06-10)
DX: I24.9 Acute ischemic heart disease, unspecified (principal); I13.0 Hypertensive heart and chronic kidney disease with heart failure and stage 1 through stage 4 chronic kidney disease, or unspecified chronic kidney disease; I50.32 Chronic diastolic (congestive) heart failure; E87.5 Hyperkalemia; I48.0 Paroxysmal atrial fibrillation; E11.22 Type 2 diabetes mellitus with diabetic chronic kidney disease; E11.51 Type 2 diabetes mellitus with diabetic peripheral angiopathy without gangrene; E66.9 Obesity, unspecified; E55.9 Vitamin D deficiency, unspecified; Z68.31 Body mass index [BMI] 31.0-31.9, adult; D63.1 Anemia in chronic kidney disease; E78.5 Hyperlipidemia, unspecified; G89.29 Other chronic pain; N18.31 Chronic kidney disease, stage 3a; K21.9 Gastro-esophageal reflux disease without esophagitis; M54.50 Low back pain, unspecified; M79.604 Pain in right leg; M79.605 Pain in left leg; N40.0 Benign prostatic hyperplasia without lower urinary tract symptoms; Z79.01 Long term (current) use of anticoagulants; Z79.4 Long term (current) use of insulin; Z79.82 Long term (current) use of aspirin; Z80.0 Family history of malignant neoplasm of digestive organs; Z82.49 Family history of ischemic heart disease and other diseases of the circulatory system; Z95.0 Presence of cardiac pacemaker; Z95.1 Presence of aortocoronary bypass graft; Z95.5 Presence of coronary angioplasty implant and graft; Z98.1 Arthrodesis status
CPT/HCPCS: 36415; 71045; 74176; 76775; 80053; 80061; 81001; 82043; 82306; 82570; 82607; 82962; 83036; 83540; 83550; 83735; 83880; 83970; 84100; 84132; 84154; 84156; 84300; 84443; 84484; 85025; 85610; 85730; 93005; 93459; 99152; G0378; J1815; J2250; J7060; Q9967

== ENCOUNTER 2024-11-13 14:09 | Inpatient (IN) | payer MEDICARE, OTHER ==
[~2024-11-13] VITALS: Ht 160 cm; Wt 74.0 kg
[~2024-11-13 14:09] MED LIST changes: +ASPI-325 PO; +ATOR-507 PO; -CHLO25TA2 PO; +CHOL20003 PO; -GLIP10TA9 PO; +LISI40TA16 PO; +MET25T PO; -METF-370 PO; -METO-158 PO; +RIV20T PO; -TAMS0.4C36 PO; +TAMS0.4C39 PO
--- NOTE | 2024-11-13 14:25 | ED.PDOC ---
HPI Comments cp Chief Complaint: Shortness of Breath Comments while walking, an hour ago, felt chest pressure. pt h as a history of same. last admitted on 06/09/23 recommended medical tx. pt has a history of cad, cm, htn, hld, chf. CABG, pacer. he has not had same cp for over a yr. pressure radiates to his neck Time Seen by MD: 14:17 Primary Care Provider: SILVESTRE Reviewed Notes: Nurses Notes, Medications, Allergies Allergies: Coded Allergies: NO KNOWN ALLERGIES (Unverified , 06/09/23) Home Meds Active Scripts Metoprolol Tartrate (Lopressor) 25 Mg Tb, 25 MG PO BID for 30 Days, #60 TAB Prov:MESSI CEJA MD 06/11/23 Aspirin (Aspirin Low Dose) 81 Mg Tab, 81 MG PO DAILY for 100 Days, #100 TAB Prov:MESSI CEJA MD 06/11/23 Reported Medications Atorvastatin Calcium (Lipitor) 40 Mg Tab, 1 TAB PO DAILY, #30 TAB 5 Refills 06/10/23 Rivaroxaban (Xarelto Tablet) 20 Mg Tb, 1 TAB PO DAILY 06/10/23 Cholecalciferol (Vitamin D-3 Super Strengt) 2,000 Unit Tab, 1 TAB PO DAILY 06/10/23 Lisinopril (Lisinopril) 40 Mg Tab, 1 TAB PO DAILY 06/10/23 Hydrocodone-Acetaminophen (Hydrocodone Bitartrate/AC 10-325 mg) 1 Tab Tab, 1 TAB PO QID, TAB 02/14/19 Nifedipine (Nifedipine Er) 90 Mg Tab, 1 TAB PO DAILY, #30 TAB 5 Refills 02/14/19 Tamsulosin Hcl (Tamsulosin Hcl) 0.4 Mg Cap, 0.4 MG PO DAILY for 30 Days, MG 02/14/19 Omeprazole (Gnp Omeprazole) 20 Mg Tab, 40 MG PO DAILY, TAB 02/14/19 Information Source: Patient, Relative (Mother) Mode of Arrival: Ambulatory Severity: Mild Timing: Hours (1) Duration: Since onset Radiation: No Radiation Quality: Pressure Onset: With Light Exertion Cardiac Risk Factors: Hyperlipidemia, HTN, Diabetes History of: Similar pain in past, [place], Angina Modifying Factors: Nothing Associated Signs and Symptoms: None Past Medical History PAST MEDICAL HISTORY: AFIB, CAD, CHF, DM, GERD, High Lipids, HTN, Liver, [place] Surgical History: CABG, Hernia Repair, Pacemaker Family History Family History: Family hx of heart [place] Social History Smoker: Non-Smoker Alcohol: Occasionally Drugs: Denies Drug Use Lives In: Home Constitutional: denies: chills, diaphoresis, fatigue, fever, malaise, sweats, weakness, others EENTM: denies: blurred vision, double vision, ear bleeding, ear discharge, ear drainage, ear pain, ear ringing, eye pain, eye redness, hearing loss, mouth pain, mouth swelling, nasal discharge, nose bleeding, nose congestion, nose pain, photophobia, tearing, throat pain, throat swelling, voice changes, others Respiratory: denies: cough, hemoptysis, orthopnea, SOB at rest, shortness of breath, SOB with excertion, stridor, wheezing, others Cardiovascular: reports: chest pain; denies: dizzy spells, diaphoresis, Dyspnea on exertion, edema, irregular heart beat, left arm pain, lightheadedness, palpitations, PND, syncope, others Gastrointestinal: denies: abdomen distended, abdominal pain, blood streaked bowels, constipated, diarrhea, dysphagia, difficulty swallowing, hematemesis, melena, nausea, poor appetite, poor fluid intake, rectal bleeding, rectal pain, vomiting, others Genitourinary: denies: burning, dysuria, flank pain, frequency, hematuria, incontinence, penile discharge, penile sore, pain, testicle pain, testicle swelling, urgency, others Neurological: denies: dizziness, fainting, headache, left sided numbness, left sided weakness, numbness, paresthesia, pre-existing deficit, right sided numbness, right sided weakness, seizure, speech problems, tingling, tremors, weakness, others Musculoskeletal: denies: back pain, gout, joint pain, joint swelling, muscle pain, muscle stiffness, neck pain, others Integumetry: denies: bruises, change in color, change in hair/nails, dryness, laceration, lesions, lumps, rash, wounds, others Allergic/Immunocompromised: denies: Difficulty Healing, Frequent Infections, Hives, Itching, others Hematologic/Lymphatic: denies: anemia, blood clots, easy bleeding, easy bruising, swollen glands, others Endocrine: denies: excessive hunger, excessive sweating, excessive thirst, excessive urination, flushing, intolerance to cold, intolerance to heat, unexplained weight gain, unexplained weight loss, others Psychiatric: denies: anxiety, bipolar disorder, depression, hopeless, panic disorder, schizophrenia, sleepless, suicidal, others All Other Systems: Reviewed and Negative Physical Exam General Appearance: No Apparent Distress, Normal HEENT: Normal ENT Inspection, Pharynx Normal, TMs Normal Neck: Full Range of Motion, Non-Tender, Normal, Normal Inspection Respiratory: Chest Non-Tender, Lungs Clear, No Accessory Muscle Use, No Respiratory Distress, Normal Breath Sounds Cardiovascular: No Edema, No JVD, No Murmur, No Gallop, Normal Peripheral Pulses, Regular Rate/Rhythm Breast Exam: Deferred Gastrointestinal: No Organomegaly, Non Tender, No Pulsatile Mass, Normal Bowel Sounds, Soft Genitalia: Deferred Pelvic: Deferred Rectal: Deferred Extremities: No calf tenderness, Normal capillary refill, Normal inspection, Normal range of motion, Non-tender, No pedal edema Musculoskeletal : Apperance: Normal Neurologic: Alert, drywall installer II-XII nml as Tested, No Motor Deficits, Normal Affect, Normal Mood, No Sensory Deficits Cerebellar Function: Normal Reflexes: Normal Skin: Dry, Normal Color, Warm Lymphatic: No Adenopathy EKG EKG : Pulse Rate (adult): 65 [place]: Normal Cardiac Rhythm: Paced Block: None Hypertrophy: None ST: Normal Was a procedure done? Was a procedure done?: No CP Differential Dx Differential Diagnosis: Angina, Anxiety / Panic Attack, [place] Differential Diagnosis: Medical NonCompliance Differential Diagnosis: Angina, Chest Wall Pain, Costochondritis, Esophageal reflux/spasm, Myocardial Infarction, Pericarditis, Pneumonia, Pneumothorax, Pulmonary Embolus X-Ray, Labs, Meds, VS Vital Signs Date Time Temp Pulse Resp B/P (MAP) Pulse Ox O2 Delivery O2 Flow Rate FiO2 11/13/24 15:15 62 16 96 Room Air* 0 21 11/13/24 15:15 97.8 62 16 116/52 (73) 96 97.8 11/13/24 14:50 65 11/13/24 14:27 98.2 66 16 129/49 (75) 97 98.2 11/13/24 14:27 Room Air 0 11/13/24 14:24 65 Lab Test 11/13/24 15:29 11/13/24 14:35 Range/Units Troponin I High Sensitivity Pending 6 </=54 ng/L White Blood Count 13.4 H 4.4-10.8 10^3/uL Red Blood Count 4.71 4.5-5.90 10^6/uL Hemoglobin 13.6 13.5-17.5 g/dL Hematocrit 40.9 L 41.0-53.0 % Mean Corpuscular Volume 86.8 80.0-100.0 fL Mean Corpuscular Hemoglobin 28.9 28.0-32.0 pg Mean Corpuscular Hemoglobin Concent 33.4 32.0-36.0 g/dL Red Cell Distribution Width 14.0 11.8-14.3 % Platelet Count 370 140-450 10^3/uL Mean Platelet Volume 7.4 6.9-10.8 fL Neutrophils (%) (Auto) 79.2 37.0-80.0 % Lymphocytes (%) (Auto) 13.3 10.0-50.0 % Monocytes (%) (Auto) 5.6 0.0-12.0 % Eosinophils (%) (Auto) 1.2 0.0-7.0 % Basophils (%) (Auto) 0.7 0.0-2.0 % Neutrophils # (Auto) 10.6 H 1.6-8.6 10 ^3/uL Lymphocytes # (Auto) 1.8 0.4-5.4 10 ^3/uL Monocytes # (Auto) 0.7 0-1.3 10 ^3/uL Eosinophils # (Auto) 0.2 0-0.8 10 ^3/uL Basophils # (Auto) 0.1 0-0.2 10 ^3/uL Nucleated Red Blood Cells 0.0 % Sodium Level 134 L 136-145 mmol/L Potassium Level 4.6 3.5-5.1 mmol/L Chloride Level 101 98-107 mmol/L Carbon Dioxide Level 23 20-31 mmol/L Anion Gap 10 5-15 Blood Urea Nitrogen 33 H 9-23 mg/dL Creatinine 1.68 H 0.700-1.30 mg/dL Glomerular Filtration Rate Calc 42 >90 mL/min BUN/Creatinine Ratio 19.6 10.0-20.0 Serum Glucose 271 H 74-106 mg/dL Calcium Level 9.3 8.7-10.4 mg/dL Time of 1ST Reevaluation: 15:42 Reevaluation 1ST: Improved Patient Education/Counseling: Diagnosis, Treatment, Prognosis, Need For Follow Up Family Education/Counseling: Diagnosis, Treatment, Prognosis, Need For Follow Up Additional Information pt does have a history of CAD. he has not had any chest pain in over a year. the workup is unremarkable, but he will need further evaluation for unstable angina Departure 1 Departure Time of Disposition: 15:42 Impression: Primary Impression: Unstable angina Disposition: ADMITTED INPATIENT Admit to: Tele Condition: Stable Discharged With: Self, Relative Critical Care Note Critical Care Time?: Yes (55 min-critical care time only) Critical care comment: due to concerns for patient's condition deteriorating, the care required my highest level of attention and readiness to intervene. i assessed the patient's condition, ordered the proper tests and treatments, reassessed for response and reviewed the results. i communicated with medical personnel and formulated a plan of care. total critical care time does not include any procedures Stability Stability form required: No Heart Score Heart Score: Heart Score Response (Comments) Value History Highly Suspicious 2 EKG Normal 0 Age >65 2 Risk Factors >3 or Hx ASHD 2 Troponin Normal limit 0 Total 6 STELLA BAUTISTA MD November 13, 2024 14:24
[2024-11-13 14:45] LABS: Basophils # (auto) 0.1 10 ^3/uL (0-0.2); Basophils % (auto) 0.7 % (0.0-2.0); Eosinophils # (auto) 0.2 10 ^3/uL (0-0.8); Eosinophils % (auto) 1.2 % (0.0-7.0); Hematocrit 40.9 % (41.0-53.0); Hemoglobin 13.6 g/dL (13.5-17.5); Lymphocytes # (auto) 1.8 10 ^3/uL (0.4-5.4); Lymphocytes % (auto) 13.3 % (10.0-50.0); Mean Corpuscular Hemoglobin 28.9 pg (28.0-32.0); Mean Corpuscular Hgb Conc. 33.4 g/dL (32.0-36.0); Mean Corpuscular Volume 86.8 fL (80.0-100.0); Monocytes # (auto) 0.7 10 ^3/uL (0-1.3); Monocytes % (auto) 5.6 % (0.0-12.0); Neutrophils # (auto) 10.6 10 ^3/uL (1.6-8.6); Neutrophils % (auto) 79.2 % (37.0-80.0); Platelet Count (auto) 370 10^3/uL (140-450); Red Blood Cells 4.71 10^6/uL (4.5-5.90); White Blood Cell 13.4 10^3/uL (4.4-10.8)
[2024-11-13 14:55] LABS: Chloride 101 mmol/L (98-107); Potassium 4.6 mmol/L (3.5-5.1)
[2024-11-13 14:56] LABS: Anion Gap 10 (5-15); Calcium 9.3 mg/dL (8.7-10.4); Carbon Dioxide 23 mmol/L (20-31)
[2024-11-13 15:01] LABS: BUN/Creatinine Ratio 19.6 (10.0-20.0)
[2024-11-13 15:15] VITALS: PULSE 62; RESP 16; O2SAT 96
[2024-11-13 15:15] LABS: Blood Urea Nitrogen 33 mg/dL (9-23); Glucose 271 mg/dL (74-106); Sodium 134 mmol/L (136-145)
[2024-11-13] MEDS: ASPirin 325 MG TAB PO ONE (15:15)
[2024-11-13] MEDS: NITROGLYCERIN 0.4 MG SL TAB SL ONE (15:16)
[2024-11-13] MEDS ORDERED: ONDANSETRON HCL 4 MG/2 ML VIAL IV PRN (19:15)
[2024-11-13] MEDS ORDERED: ACETAMINOPHEN 325 MG TAB PO PRN (19:15)
[2024-11-13] MEDS ORDERED: NITROGLYCERIN 0.4 MG SL TAB SL PRN (19:15)
[2024-11-13] MEDS ORDERED: MORPHINE SULFATE INJ 2 MG/ml SYRG IV PRN (19:15)
--- NOTE | 2024-11-13 20:15 | DVH ---
CHEST RADIOGRAPH Indication: SOB Technique: Single frontal view of the chest was obtained Comparison: XY CHEST PORTABLE on DOS: 06/09/23, CHEST XRAY 1 VIEW on DOS: 05/18/20 FINDINGS: Lines and Tubes: None. Left-sided approach dual lead pacemaker terminating within right atrium and r ight ventricle. Lungs: No focal consolidation. Bilateral lower lung zone linear densities. Pleura: No effusion. No pneumothorax. Cardiomediastinal contours: Unremarkable midline sternotomy wires surgical clips are noted consistent with prior history of CABG. Bones: No acute osseous abnormality. IMPRESSION: Bilateral lower lung zone linear atelectasis. Otherwise, No acute cardiopulmonary disease.
[2024-11-13 20:16] LABS: Urine Bacteria None Seen /hpf (None Seen)
[2024-11-13 20:28] LABS: Urine Blood Negative /uL (Negative); Urine Clarity Clear (Clear); Urine Color Light-Yellow (Yellow); Urine Protein, UAD Negative (Negative); Urine Specific Gravity 1.011 (1.001-1.035); Urine Squamous Epithelial Cell FEW /hpf (<5); Urine Urobilinogen Normal (Negative)
--- NOTE | 2024-11-13 20:37 | DVHHP2 ---
History of Present Illness Reason for Visit: Chest pain History of Present Illness 74-year-old male presents for evaluation of chest pain. Patient reports developing initially epigastric abdominal pain with nausea. He then subsequently developed substernal chest pressure with associated jaw numbness. He states his symptoms lasted approximately 1 hour. Currently denies chest pain or shortness for breath. No other acute symptoms. Past Medical History Diabetes mellitus, CHF, CAD, AFib, dyslipidemia, hypertension, liver disease, [place] Past Surgical History Pacemaker, hernia repair, CABG Family History Heart disease Smoke: No ALCOHOL: occassional Drugs: None Lives: with Family Review of Systems Review of Systems Review of systems are currently negative otherwise addressed in HPI. Allergies: Coded Allergies: NO KNOWN ALLERGIES (Unverified , 06/09/23) Medications Current Medications Medications Dose Ordered Sig/Laya Route Start Time Stop Time Status Last Admin Dose Admin Aspirin 81 mg DAILY PO 11/14/24 10:00 Atorvastatin Calcium 40 mg HS PO 11/13/24 22:00 Metoprolol Tartrate 25 mg BID PO 11/13/24 22:00 Nifedipine 90 mg DAILY PO 11/14/24 10:00 Rivaroxaban 20 mg QPM PO 11/14/24 18:00 Tamsulosin HCl 0.4 mg QPM PO 11/14/24 18:00 Ondansetron HCl 4 mg Q4HP PRN IV 11/13/24 19:15 Acetaminophen 650 mg Q6HP PRN PO 11/13/24 19:15 Nitroglycerin 0.4 mg Q5MINP PRN SL 11/13/24 19:15 Morphine Sulfate 2 mg Q30M PRN IV 11/13/24 19:15 Exam Vital Signs Vital Signs Date Time Temp Pulse Resp B/P (MAP) Pulse Ox O2 Delivery O2 Flow Rate FiO2 11/13/24 19:30 67 13 147/69 (95) 95 11/13/24 15:15 Room Air* 0 21 11/13/24 15:15 97.8 97.8 Exam Gen: 74-year-old male in no apparent distress Skin: Warm, dry, normal color and texture, no rash. HEENT: Normocephalic atraumatic, mucous membranes moist and pink. Neck: Cervical and supraclavicular nodes normal without enlargement, trachea is midline, thyroid gland is normal without masses. Pulmonary: Clear to auscultation and percussion bilaterally. Cardiac: Regular rate and rhythm. No murmur Abdomen: Soft, nontender, nondistended, bowel sounds present all 4 quadrants, no guarding, no rigidity, no organomegaly. Extremities: No cyanosis, clubbing, no edema Neuro: Cranial nerves II through XII grossly intact, normal affect and speech, no focal motor deficits. Labs/Xrays ORDERING PHYSICIAN: MERLYN ANDRE PROCEDURE(s): CXR1 - CHEST XRAY 1 VIEW REASON: SOB ORDER NUMBER(s): [id number], ACCESSION NUMBER(s): [id number] CHEST RADIOGRAPH Indication: SOB Technique: Single frontal view of the chest was obtained Comparison: XY CHEST PORTABLE on DOS: 06/09/23, CHEST XRAY 1 VIEW on DOS: 05/18/20 FINDINGS: Lines and Tubes: None. Left-sided approach dual lead pacemaker terminating within right atrium and right ventricle. Lungs: No focal consolidation. Bilateral lower lung zone linear densities. Pleura: No effusion. No pneumothorax. Cardiomediastinal contours: Unremarkable midline sternotomy wires surgical clips are noted consistent with prior history of CABG. Bones: No acute osseous abnormality. IMPRESSION: Bilateral lower lung zone linear atelectasis. Otherwise, No acute cardiopulmonary disease. Labs Test 11/13/24 18:00 11/13/24 15:29 11/13/24 14:35 Range/Units Urine Color Light-yellow Yellow Urine Clarity Clear Clear Urine pH 6.0 5.0-9.0 Urine Specific [place] 1.011 1.001-1.035 Urine Protein Negative Negative Urine Ketones Negative Negative Urine Blood Negative Negative /uL Urine Nitrite Negative Negative Urine Bilirubin Negative Negative Urine Urobilinogen Normal Negative mg/dL Urine Leukocyte Esterase Negative Negative /uL Urine RBC <1 0 - 3 /hpf Urine Squamous Epithelial Cells Few <5 /hpf Urine Bacteria None seen None Seen /hpf Urine Glucose 4+ H Normal mg/dL Troponin I High Sensitivity 8 </=54 ng/L White Blood Count 13.4 H 4.4-10.8 10^3/uL Red Blood Count 4.71 4.5-5.90 10^6/uL Hemoglobin 13.6 13.5-17.5 g/dL Hematocrit 40.9 L 41.0-53.0 % Mean Corpuscular Volume 86.8 80.0-100.0 fL Mean Corpuscular Hemoglobin 28.9 28.0-32.0 pg Mean Corpuscular Hemoglobin Concent 33.4 32.0-36.0 g/dL Red Cell Distribution Width 14.0 11.8-14.3 % Platelet Count 370 140-450 10^3/uL Mean Platelet Volume 7.4 6.9-10.8 fL Neutrophils (%) (Auto) 79.2 37.0-80.0 % Lymphocytes (%) (Auto) 13.3 10.0-50.0 % Monocytes (%) (Auto) 5.6 0.0-12.0 % Eosinophils (%) (Auto) 1.2 0.0-7.0 % Basophils (%) (Auto) 0.7 0.0-2.0 % Neutrophils # (Auto) 10.6 H 1.6-8.6 10 ^3/uL Lymphocytes # (Auto) 1.8 0.4-5.4 10 ^3/uL Monocytes # (Auto) 0.7 0-1.3 10 ^3/uL Eosinophils # (Auto) 0.2 0-0.8 10 ^3/uL Basophils # (Auto) 0.1 0-0.2 10 ^3/uL Nucleated Red Blood Cells 0.0 % Sodium Level 134 L 136-145 mmol/L Potassium Level 4.6 3.5-5.1 mmol/L Chloride Level 101 98-107 mmol/L Carbon Dioxide Level 23 20-31 mmol/L Anion Gap 10 5-15 Blood Urea Nitrogen 33 H 9-23 mg/dL Creatinine 1.68 H 0.700-1.30 mg/dL Glomerular Filtration Rate Calc 42 >90 mL/min BUN/Creatinine Ratio 19.6 10.0-20.0 Serum Glucose 271 H 74-106 mg/dL Calcium Level 9.3 8.7-10.4 mg/dL Assessment/Plan Assessment/Plan Assessment Unstable angina Diabetes mellitus Hypertension Coronary artery disease History of AFib Status post CABG Chronic kidney disease Plan Admit the patient to telemetry to the hospitalist Echocardiogram pending Resume home medications Continue treatment per orders Plan discussed with: Patient My Orders Orders - MERLYN ANDRE AGACNP Procedure Category Date Status Time Aspirin Tablet PHA 11/14/24 In Process 10:00 Atorvastatin (Lipitor) PHA 11/13/24 In Process 22:00 Metoprolol Tartrate PHA 11/13/24 In Process Tablet (Lopressor Ta 22:00 Nifedipine Er PHA 11/14/24 In Process (Procardia Xl 10:00 Rivaroxaban Tablet PHA 11/14/24 In Process (Xarelto Tablet) 18:00 Tamsulosin PHA 11/14/24 In Process Hydrochloride (Flomax) 18:00 Basic Metabolic Panel LAB 11/14/24 Verified 04:00 Admit ADMIT 11/13/24 Transmitted 19:10 Ondansetron Hcl PHA 11/13/24 In Process (Zofran) 19:15 Complete Blood Count LAB 11/14/24 Verified 04:00 Comprehensive LAB 11/14/24 Verified Metabolic Panel 04:00 Cardiac DIET 11/14/24 Transmitted Diet-2gna,Lofat,Lochol Breakfast Echo 2d Mode Cardiac US 11/13/24 Logged DOP 19:10 Condition: Fair DEBRA 11/13/24 In Process 19:10 Acetaminophen Tablet PHA 11/13/24 In Process (Tylenol Tablet) 19:15 Bedrest With Bathroom DEBRA 11/13/24 In Process Privileg 19:10 Nitroglycerin PHA 11/13/24 In Process Sublingual (Ntrostat 19:15 Morphine Sulfate PHA 11/13/24 In Process Injection 19:15 Stat Ekg For Chest DEBRA 11/13/24 In Process Pain 19:10 Notify Of Changes DEBRA 11/13/24 In Process From Base 19:10 Road Machinery Inspector For DEBRA 11/13/24 In Process 24 Hours 19:10 Emergency Dysrhythmia DEBRA 11/13/24 In Process Protocol 19:10 Rhythm Strips Once DEBRA 11/13/24 In Process Every Shift 19:10 Oxygen By Nasal RT 11/13/24 Transmitted Cannula 19:10 Chest Xray 1 View XY 11/13/24 Resulted 19:20 Urinalysis LAB 11/13/24 In Process 18:00 Hemoglobin A1c LAB 11/13/24 Verified 20:32 Thyroid Stimulating LAB 11/13/24 Verified Hormone 20:32 Lipid Panel LAB 11/13/24 Verified 20:32 Date of Service: November 13, 2024 Billing Provider: MERLYN ANDRE Common Visit Codes: [id number] INP/OBS CARE (HIGH) MERLYN ANDRE November 13, 2024 20:37
[2024-11-13 20:40] LABS: Urine WBC 2 /HPF (0-3)
[2024-11-13 20:48] LABS: Triglycerides 143 mg/dL (< 150)
[2024-11-13 20:49] LABS: LDL Cholesterol 33 mg/dL (< 100)
[2024-11-13 20:50] LABS: Cholesterol 89 mg/dL (< 200)
[2024-11-13 20:51] LABS: HDL Cholesterol 37 mg/dL (40-59)
[2024-11-13] MEDS: ATORVASTATIN 20 MG TAB PO SCH (22:23)
[2024-11-13] MEDS: METOPROLOL TARTRATE 25 MG TAB PO SCH (22:23)
[2024-11-13 23:00] VITALS: PULSE 70; RESP 14; O2SAT 94
[2024-11-14 03:47] LABS: Basophils # (auto) 0.1 10 ^3/uL (0-0.2); Basophils % (auto) 0.5 % (0.0-2.0); Eosinophils # (auto) 0.1 10 ^3/uL (0-0.8); Eosinophils % (auto) 1.2 % (0.0-7.0); Hematocrit 42.3 % (41.0-53.0); Lymphocytes # (auto) 1.9 10 ^3/uL (0.4-5.4); Mean Corpuscular Hemoglobin 28.5 pg (28.0-32.0); Mean Corpuscular Hgb Conc. 33.1 g/dL (32.0-36.0); Mean Corpuscular Volume 86.1 fL (80.0-100.0); Monocytes # (auto) 0.8 10 ^3/uL (0-1.3); Monocytes % (auto) 6.7 % (0.0-12.0); Neutrophils # (auto) 8.8 10 ^3/uL (1.6-8.6); Neutrophils % (auto) 75.6 % (37.0-80.0); Platelet Count (auto) 379 10^3/uL (140-450); Red Blood Cells 4.91 10^6/uL (4.5-5.90); Red Cell Distribution Width 13.6 % (11.8-14.3); White Blood Cell 11.6 10^3/uL (4.4-10.8)
[2024-11-14 04:00] LABS: Albumin 4.3 g/dL (3.2-4.8); Alkaline Phosphatase 92 U/L (46-116); Anion Gap 10 (5-15); Aspartate Aminotransferase 14 U/L (13-40); BUN/Creatinine Ratio 17.8 (10.0-20.0); Calcium 9.3 mg/dL (8.7-10.4); Carbon Dioxide 22 mmol/L (20-31); Chloride 105 mmol/L (98-107); Potassium 4.1 mmol/L (3.5-5.1); Sodium 137 mmol/L (136-145); Total Protein 6.8 g/dL (5.7-8.2)
[2024-11-14 04:01] LABS: Bilirubin, Total 0.5 mg/dL (0.2-1.0)
[2024-11-14 04:07] LABS: Alanine Aminotransferase 9 U/L (7-40); Blood Urea Nitrogen 24 mg/dL (9-23); Glucose 155 mg/dL (74-106)
[2024-11-14 05:00] VITALS: BP 152/69; PULSE 64; RESP 15; O2SAT 94
[2024-11-14 07:00] VITALS: TEMP 97.4
[2024-11-14] MEDS ORDERED: ASPirin 81 mg TAB PO SCH (10:00)
[2024-11-14] MEDS ORDERED: NIFEdipine ER 30 MG TAB PO SCH (10:00)
--- NOTE | 2024-11-14 12:58 | ECG ---
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
[2024-11-14] MEDS ORDERED: TAMSULOSIN HYDROCHLORIDE 0.4 MG CAP PO SCH (18:00)
[2024-11-14] MEDS ORDERED: RIVAROXABAN 20 MG TAB PO SCH (18:00)
== END 2024-11-14 07:20 | disposition left against medical advice (07) | DRG 303 ==
LOC: ER 14:12 → OVERFLOW 19:10
PROVIDERS: ADMIT Nurse Practitioner; ATTEND Nurse Practitioner
DX: I25.110 Atherosclerotic heart disease of native coronary artery with unstable angina pectoris (principal); I13.0 Hypertensive heart and chronic kidney disease with heart failure and stage 1 through stage 4 chronic kidney disease, or unspecified chronic kidney disease; E11.22 Type 2 diabetes mellitus with diabetic chronic kidney disease; Z53.29 Procedure and treatment not carried out because of patient's decision for other reasons; N18.9 Chronic kidney disease, unspecified; I48.91 Unspecified atrial fibrillation; E78.5 Hyperlipidemia, unspecified; I50.9 Heart failure, unspecified; K21.9 Gastro-esophageal reflux disease without esophagitis; Z79.82 Long term (current) use of aspirin; Z79.899 Other long term (current) drug therapy; Z95.1 Presence of aortocoronary bypass graft
CPT/HCPCS: 36415; 71045; 80048; 80053; 80061; 81001; 82962; 83036; 84443; 84484; 85025; 93005; 99291; G0378